=== PATIENT | male | born 1990 | race African-American/Black ===

== ENCOUNTER 2016-12-02 23:07 | Emergency (ER) | payer MEDICAID ==
[~2016-12-02] VITALS: Ht 172.7 cm; Wt 64.9 kg
[2016-12-03] MEDS ORDERED: FOLIC ACID 1 MG, THIAMINE HCL 100 MG, MVI, ADULT NO.1 10 ML in DEXTROSE 5% WATER 1,000 ML IV ONE ×4
[2016-12-03 00:18] LABS: BASOPHILS % 0.4 % (0.0-2.0); HEMATOCRIT. 45.5 % (42.0-52.0); LYMPHOCYTES % 22.9 % (20.0-50.0); MEAN CORPUSCULAR HEMOGLOBIN 34.7 pg (28.0-32.0); MEAN CORPUSCULAR HGB CONC 35.1 g/dL (31.0-37.0); MEAN PLATELET VOLUME 7.3 fl (7.4-10.4); MONOCYTES % 9.4 % (2.0-8.0); NEUTROPHILS % 59.3 % (40.0-76.0); PLATELET 177 x1000/uL (130-400); RED CELL DISTRIBUTION WIDTH 12.8 % (11.6-14.6); WHITE BLOOD COUNT 5.1 x1000/uL (4.5-11.0)
[2016-12-03 00:22] LABS: CHLORIDE 102 mEq/L (98-107); INDEX HEMOLYSI 1 (1-3); INDEX ICTERIC 1 (1-4); INDEX LIPEMIC 1 (1-3)
[2016-12-03 00:31] LABS: ACETAMINOPHEN < 2 ug/mL (10-30); ALANINE AMINOTRANSFERASE 42 IU/L (13-61); ALBUMIN 3.9 g/dL (3.4-5.0); ANION GAP 13; CALCIUM 9.3 mg/dL (8.5-10.1); CARBON DIOXIDE 28 mEq/L (21-32); ETHANOL BLOOD < 10 mg/dL; UREA NITROGEN BLOOD 11 mg/dL (7-21); eGFR > 60 mL/min (>60)
[2016-12-03 00:47] LABS: GLUCOSE URINE NEGATIVE (NEGATIVE); KETONES URINE TRACE (NEGATIVE); LEUKOCYTE ESTERASE URINE 2+ (NEGATIVE); NITRITE URINE NEGATIVE (NEGATIVE); OCCULT BLOOD URINE NEGATIVE (NEGATIVE); PROTEIN URINE TRACE (NEGATIVE); SPECIFIC GRAVITY URINE 1.026 (1.005-1.030)
[2016-12-03 00:48] LABS: CLARITY URINE SL HAZY (CLEAR); COLOR URINE YELLOW (YELLOW)
[2016-12-03 01:06] LABS: *AMPHETAMINES SCREEN URINE PRESUMTIVE POSITIVE (NEGATIVE); *BARBITURATES SCREEN URINE NEGATIVE (NEGATIVE); *BENZODIAZEPINES SCREEN URINE NEGATIVE (NEGATIVE); *COCAINE SCREEN URINE NEGATIVE (NEGATIVE); CANNABINOID URINE SCREEN PRESUMTIVE POSITIVE (NEGATIVE); ECSTASY MDMA SCREEN URINE NEGATIVE (NEGATIVE); METHADONE URINE SCREEN NEGATIVE (NEGATIVE); OPIATES URINE SCREEN NEGATIVE (NEGATIVE); PHENCYCLIDINE URINE SCREEN NEGATIVE (NEGATIVE)
[2016-12-03 01:09] LABS: RBC URINE 0-2 /hpf (0-2); SQUAMOUS EPITHELIAL CELL URINE NONE SEEN /lpf (RARE/1+)
[2016-12-03 01:10] LABS: BACTERIA URINE TRACE
[2016-12-03 01:34] VITALS: BP 129/76
== END 2016-12-03 03:00 | disposition home or self-care (01) ==
LOC: ER 23:19
DX: F10.20 Alcohol dependence, uncomplicated (principal); N39.0 Urinary tract infection, site not specified; F19.10 Other psychoactive substance abuse, uncomplicated; F17.210 Nicotine dependence, cigarettes, uncomplicated; F12.10 Cannabis abuse, uncomplicated; F15.10 Other stimulant abuse, uncomplicated; Y90.9 Presence of alcohol in blood, level not specified; Z79.899 Other long term (current) drug therapy
CPT/HCPCS: 36415; 80053; 80305; 80329; 81001; 85025; 96365; 99284; G0482; J3411; J3490; J7070; 80307

== ENCOUNTER 2016-12-18 12:03 | Emergency (ER) | payer MEDICAID ==
[~2016-12-18] VITALS: Ht 172.7 cm; Wt 61.0 kg
[2016-12-18 12:49] VITALS: BP 114/81
== END 2016-12-18 18:28 | disposition home or self-care (01) ==
LOC: ER 14:48
DX: B34.9 Viral infection, unspecified (principal); F12.10 Cannabis abuse, uncomplicated
CPT/HCPCS: 71010; 99283

== ENCOUNTER 2017-05-13 22:17 | Emergency (ER) | payer MEDICAID ==
[~2017-05-13] VITALS: Ht 170.2 cm; Wt 63.0 kg
[2017-05-13] MEDS ORDERED: SODIUM CHLORIDE 0.9% 1,000 ML IV ONE (23:27)
[2017-05-13] MEDS ORDERED: KETOROLAC 30MG/ML VIAL IV STA (23:27)
[2017-05-13] MEDS ORDERED: FAMOTIDINE 20MG/2ML VIAL IV STA (23:27)
[2017-05-13] MEDS ORDERED: ONDANSETRON HCL 4MG/2ML VIAL IV STA (23:27)
[2017-05-13 23:53] VITALS: BP 120/85
[2017-05-13 23:59] LABS: HEMATOCRIT. 45.4 % (42.0-52.0); HEMOGLOBIN. 15.8 g/dL (14.0-18.0); MEAN CORPUSCULAR HEMOGLOBIN 33.5 pg (28.0-32.0); MEAN CORPUSCULAR VOLUME 96.2 fL (80.0-94.0); MEAN PLATELET VOLUME 7.3 fl (7.4-10.4); PLATELET 208 x1000/uL (130-400); RED BLOOD CELL COUNT 4.72 mill/uL (4.7-6.1); RED CELL DISTRIBUTION WIDTH 12.5 % (11.6-14.6)
[2017-05-14 00:02] LABS: INR 1.2; PROTHROMBIN TIME 12.7 sec (9.4-11.6)
[2017-05-14 00:05] LABS: CHLORIDE 107 mEq/L (98-107)
[2017-05-14 00:13] LABS: CARBON DIOXIDE 23 mEq/L (21-32); ETHANOL BLOOD 21 mg/dL
[2017-05-14] MEDS ORDERED: FOLIC ACID 1 MG, THIAMINE HCL 100 MG, MVI, ADULT NO.1 10 ML in DEXTROSE 5% WATER 1,000 ML IV ONE ×4 (00:30)
[2017-05-14 00:52] LABS: PLATELET ESTIMATE NORMAL
[2017-05-14 02:23] LABS: CLARITY URINE CLEAR (CLEAR); COLOR URINE DARK YELLOW (YELLOW); GLUCOSE URINE NEGATIVE (NEGATIVE); KETONES URINE 3+ (NEGATIVE); LEUKOCYTE ESTERASE URINE TRACE (NEGATIVE); NITRITE URINE NEGATIVE (NEGATIVE); OCCULT BLOOD URINE NEGATIVE (NEGATIVE); PH URINE 5.5 (4.5-8.0); PROTEIN URINE 1+ (NEGATIVE); SPECIFIC GRAVITY URINE 1.029 (1.005-1.030)
[2017-05-14 02:41] LABS: *AMPHETAMINES SCREEN URINE PRESUMTIVE POSITIVE (NEGATIVE); *BARBITURATES SCREEN URINE NEGATIVE (NEGATIVE); *BENZODIAZEPINES SCREEN URINE NEGATIVE (NEGATIVE); *COCAINE SCREEN URINE NEGATIVE (NEGATIVE); CANNABINOID URINE SCREEN PRESUMTIVE POSITIVE (NEGATIVE); METHADONE URINE SCREEN NEGATIVE (NEGATIVE); OPIATES URINE SCREEN NEGATIVE (NEGATIVE); PHENCYCLIDINE URINE SCREEN NEGATIVE (NEGATIVE)
[2017-05-14 07:49] LABS: HEPATITIS A AB IGM NEGATIVE (NEGATIVE); HEPATITIS B CORE AB IGM NEGATIVE; HEPATITIS B SURFACE ANTIGEN NEGATIVE
== END 2017-05-14 03:37 | disposition home or self-care (01) ==
LOC: ER 22:46
DX: R10.13 Epigastric pain (principal); R11.2 Nausea with vomiting, unspecified; F17.200 Nicotine dependence, unspecified, uncomplicated; F12.10 Cannabis abuse, uncomplicated; F10.20 Alcohol dependence, uncomplicated; Y90.8 Blood alcohol level of 240 mg/100 ml or more
CPT/HCPCS: 36415; 76705; 80053; 80305; 81001; 82962; 83690; 85025; 85610; 96361; 96365; 96366; 96375; 99285; G0482; J1885; J2405; J3411; J3490; J7030; J7070; 86705; 86709; 86803; 87340

== ENCOUNTER 2017-05-24 00:03 | Emergency (ER) | payer MEDICAID ==
[~2017-05-24] VITALS: Ht 170.2 cm; Wt 54.0 kg
[2017-05-24] MEDS ORDERED: ONDANSETRON HCL 4MG/2ML VIAL IV STA (04:46)
[2017-05-24 05:07] LABS: HEMATOCRIT. 44.4 % (42.0-52.0); HEMOGLOBIN. 15.5 g/dL (14.0-18.0); MEAN CORPUSCULAR HEMOGLOBIN 33.4 pg (28.0-32.0); MEAN CORPUSCULAR VOLUME 95.8 fL (80.0-94.0); MEAN PLATELET VOLUME 7.3 fl (7.4-10.4); PLATELET 213 x1000/uL (130-400); RED BLOOD CELL COUNT 4.63 mill/uL (4.7-6.1); RED CELL DISTRIBUTION WIDTH 12.3 % (11.6-14.6)
[2017-05-24] MEDS ORDERED: MORPHINE SULFATE 4 MG/ML CPJ (NOT FOR IM USE) IV STA (05:12)
[2017-05-24] MEDS ORDERED: SODIUM CHLORIDE 0.9% 1,000 ML IV ONE (05:12)
[2017-05-24 05:25] LABS: CLARITY URINE CLEAR (CLEAR); COLOR URINE DARK YELLOW (YELLOW); GLUCOSE URINE NEGATIVE (NEGATIVE); KETONES URINE TRACE (NEGATIVE); LEUKOCYTE ESTERASE URINE TRACE (NEGATIVE); NITRITE URINE NEGATIVE (NEGATIVE); OCCULT BLOOD URINE NEGATIVE (NEGATIVE); PROTEIN URINE 1+ (NEGATIVE); SPECIFIC GRAVITY URINE 1.027 (1.005-1.030)
[2017-05-24 05:29] LABS: CARBON DIOXIDE 22 mEq/L (21-32); CHLORIDE 106 mEq/L (98-107)
[2017-05-24 06:37] LABS: PLATELET ESTIMATE NORMAL
[2017-05-24 07:31] VITALS: BP 102/64
== END 2017-05-24 08:01 | disposition home or self-care (01) ==
LOC: ER 00:03
DX: N39.0 Urinary tract infection, site not specified (principal)
CPT/HCPCS: 36415; 74176; 80053; 81001; 83690; 85025; 96361; 96374; 96375; 99285; J2270; J2405; J7030; Z7610

== ENCOUNTER 2017-06-21 04:49 | Emergency (ER) | payer MEDICAID ==
[~2017-06-21] VITALS: Ht 172.7 cm; Wt 65.0 kg
[2017-06-21] MEDS ORDERED: SODIUM CHLORIDE 0.9% 1,000 ML IV ONE (09:00)
[2017-06-21] MEDS ORDERED: FAMOTIDINE 20MG/2ML VIAL IV ONE (09:00)
[2017-06-21] MEDS ORDERED: ONDANSETRON HCL 4MG/2ML VIAL IM ONE (09:00)
[2017-06-21] MEDS ORDERED: MORPHINE SULFATE 1MG/ML 1ML INJ SYR(NEO) IV ONE (09:00)
[2017-06-21] MEDS ORDERED: MORPHINE SULFATE 2 MG/ML CPJ (NOT FOR IM USE) IV ONE (09:30)
[2017-06-21 09:41] LABS: HEMATOCRIT. 47.3 % (42.0-52.0); HEMOGLOBIN. 16.3 g/dL (14.0-18.0); MEAN CORPUSCULAR HEMOGLOBIN 33.1 pg (28.0-32.0); MEAN CORPUSCULAR VOLUME 96.2 fL (80.0-94.0); MEAN PLATELET VOLUME 7.4 fl (7.4-10.4); PLATELET 229 x1000/uL (130-400); RED BLOOD CELL COUNT 4.92 mill/uL (4.7-6.1); RED CELL DISTRIBUTION WIDTH 12.3 % (11.6-14.6)
[2017-06-21 09:41] LABS: CLARITY URINE CLOUDY (CLEAR); COLOR URINE DARK YELLOW (YELLOW); GLUCOSE URINE NEGATIVE (NEGATIVE); KETONES URINE 1+ (NEGATIVE); LEUKOCYTE ESTERASE URINE 1+ (NEGATIVE); NITRITE URINE NEGATIVE (NEGATIVE); OCCULT BLOOD URINE NEGATIVE (NEGATIVE); PH URINE 5.5 (4.5-8.0); PROTEIN URINE 1+ (NEGATIVE); SPECIFIC GRAVITY URINE 1.028 (1.005-1.030)
[2017-06-21 09:48] LABS: CHLORIDE 106 mEq/L (98-107)
[2017-06-21 09:55] LABS: CARBON DIOXIDE 27 mEq/L (21-32)
[2017-06-21 10:30] LABS: PLATELET ESTIMATE NORMAL
[2017-06-21] MEDS ORDERED: MORPHINE SULFATE 4 MG/ML CPJ (NOT FOR IM USE) IV NR (10:30)
[2017-06-21 10:39] VITALS: BP 104/69
[2017-06-21] MEDS ORDERED: CEFTRIAXONE SODIUM 1 G/VIAL IM ONE (11:00)
== END 2017-06-21 12:59 | disposition home or self-care (01) ==
LOC: ER 04:49
DX: K29.70 Gastritis, unspecified, without bleeding (principal); N39.0 Urinary tract infection, site not specified
CPT/HCPCS: 36415; 76700; 80053; 81001; 83690; 85025; 96361; 96372; 96374; 96375; 99285; J0696; J2270; J2405; J3490; J7030; Z7610

== ENCOUNTER 2017-06-30 12:26 | Emergency (ER) | payer MEDICAID ==
[~2017-06-30] VITALS: Ht 172.7 cm; Wt 66.0 kg
[2017-06-30 12:30] VITALS: BP 106/64
== END 2017-06-30 17:05 | disposition left against medical advice (07) ==
LOC: ER 14:50
DX: Z53.21 Procedure and treatment not carried out due to patient leaving prior to being seen by health care provider (principal)

== ENCOUNTER 2019-01-17 02:12 | Emergency (ER) | payer MEDICAID ==
[~2019-01-17] VITALS: Ht 170.2 cm; Wt 64.0 kg
[2019-01-17 02:19] VITALS: BP 133/99
== END 2019-01-17 06:26 | disposition left against medical advice (07) ==
LOC: ER 02:12
DX: R10.9 Unspecified abdominal pain (principal); Z53.21 Procedure and treatment not carried out due to patient leaving prior to being seen by health care provider

== ENCOUNTER 2019-06-21 07:21 | Emergency (ER) | payer MEDICAID ==
[~2019-06-21] VITALS: Ht 170.2 cm; Wt 61.0 kg
[2019-06-21 07:59] VITALS: BP 111/74
[2019-06-21] MEDS ORDERED: AZITHROMYCIN 500 MG TABLET PO ONE (09:00)
[2019-06-21] MEDS ORDERED: CEFTRIAXONE SODIUM 250 MG/VIAL IM ONE (09:00)
[2019-06-21 12:56] LABS: CLARITY URINE CLEAR (CLEAR); COLOR URINE YELLOW (YELLOW); KETONES URINE NEGATIVE (NEGATIVE); LEUKOCYTE ESTERASE URINE 3+ (NEGATIVE); NITRITE URINE NEGATIVE (NEGATIVE); OCCULT BLOOD URINE NEGATIVE (NEGATIVE); PH URINE 6.5 (4.5-8.0); PROTEIN URINE NEGATIVE (NEGATIVE)
== END 2019-06-21 10:53 | disposition home or self-care (01) ==
LOC: ER 07:27
DX: N34.2 Other urethritis (principal)
CPT/HCPCS: 81003; 87086; 87491; 87591; 96372; 99283; J0696

== ENCOUNTER 2021-07-30 22:07 | Emergency (ER) | payer MEDICAID ==
[~2021-07-30] VITALS: Ht 172.7 cm; Wt 65.8 kg
[2021-07-30 22:20] VITALS: BP 118/87
[2021-07-30] MEDS ORDERED: PREDNISONE 20MG TABLET PO ONE (23:15)
[2021-07-30] MEDS ORDERED: DIPHENHYDRAMINE 25MG CAPSULE PO ONE (23:15)
[2021-07-30] MEDS ORDERED: FAMOTIDINE 20MG TABLET PO ONE (23:15)
[2021-07-31] MEDS ORDERED: PERM60CR4 TP (00:30)
[2021-07-31] MEDS ORDERED: PRED10TA MT (00:30)
== END 2021-07-31 00:53 | disposition home or self-care (01) ==
LOC: ER 22:07
DX: B86 Scabies (principal); K64.4 Residual hemorrhoidal skin tags
CPT/HCPCS: 99284; J7512; Q0163

== ENCOUNTER 2021-08-28 08:24 | Emergency (ER) | payer MEDICAID ==
[~2021-08-28] VITALS: Ht 172.7 cm; Wt 68.0 kg
[~2021-08-28 08:24] MED LIST: PERM60CR4 TP; PRED10TA MT
[2021-08-28 08:47] VITALS: BP 119/64
== END 2021-08-28 12:24 | disposition left against medical advice (07) ==
LOC: ER 08:24
DX: Z53.21 Procedure and treatment not carried out due to patient leaving prior to being seen by health care provider (principal)

== ENCOUNTER 2025-02-08 11:10 | Emergency (ER) | payer MEDICAID ==
[~2025-02-08] VITALS: Ht 172.7 cm; Wt 65.0 kg
[2025-02-08 11:19] VITALS: O2SAT 100
[2025-02-08] MEDS: KETOROLAC 30MG/ML VIAL IV STA (12:32)
[2025-02-08 13:20] LABS: BASOPHILS % 0.4 % (0.0-2.0); EOSINOPHILS % 2.7 % (0.0-5.0); HEMATOCRIT. 32.4 % (42.0-52.0); HEMOGLOBIN. 10.6 g/dL (14.0-18.0); LYMPHOCYTES % 30.1 % (20.0-50.0); MEAN CORPUSCULAR HEMOGLOBIN 29.7 pg (28.0-32.0); MEAN CORPUSCULAR HGB CONC 32.7 g/dL (31.0-37.0); MEAN CORPUSCULAR VOLUME 90.9 fL (80.0-94.0); MEAN PLATELET VOLUME 7.3 fl (7.4-10.4); MONOCYTES % 5.4 % (2.0-8.0); NEUTROPHILS % 61.4 % (40.0-76.0); PLATELET 330 x1000/uL (130-400); RED BLOOD CELL COUNT 3.56 mill/uL (4.7-6.1); RED CELL DISTRIBUTION WIDTH 14.5 % (11.6-14.6); WHITE BLOOD COUNT 10.9 x1000/uL (4.5-11.0)
[2025-02-08 14:07] LABS: CHLORIDE 101 mEq/L (98-107); POTASSIUM 4.1 mEq/L (3.5-5.1); SODIUM 135 mEq/L (136-145)
[2025-02-08 14:08] LABS: CALCIUM 8.8 mg/dL (8.7-10.4); CARBON DIOXIDE 26 mEq/L (21-32)
[2025-02-08 14:13] LABS: GLUCOSE 90 mg/dL (70-105); UREA NITROGEN BLOOD 16 mg/dL (9-23)
[2025-02-08] MEDS: CEFTRIAXONE 1GM/50ML 50 ML IV ONE (16:53)
[2025-02-08 19:00] VITALS: BP 117/82; PULSE 89; RESP 16; TEMP 36.9; O2SAT 100
[2025-02-10 09:07] LABS: % CD 3 POS. LYMPHOCYTES 78.7 % (57.5-86.2); % CD 4 POS. LYMPHOCYTES 11.8 % (30.8-58.5); % CD 8 POS. LYMPH 66.7 % (12.0-35.5); ABSOLUTE CD 3 3227 /uL (622-2402); ABSOLUTE CD 4 HELPER 484 /uL (359-1519); ABSOLUTE CD 8 SUPPRESSOR 2735 /uL (109-897); ABSOLUTE EOSINOPHILS 0.3 x10E3/uL (0.0-0.4); ABSOLUTE LYMPHOCYTES 4.1 x10E3/uL (0.7-3.1); ABSOLUTE MONOCYTES 0.6 x10E3/uL (0.1-0.9); ABSOLUTE NEUTROPHILS 6.2 x10E3/uL (1.4-7.0); BASOPHILS 0 % (Not Estab.); CD4/CD8 RATIO 0.18 (0.92-3.72); EOSINOPHILS 2 % (Not Estab.); HEMATOCRIT 30.2 % (37.5-51.0); HEMOGLOBIN 9.5 g/dL (13.0-17.7); IMMATURE GRANULOCYTES 1 % (Not Estab.); IMMATURE GRANULOCYTES ABSOLUTE 0.1 x10E3/uL (0.0-0.1); LYMPHOCYTES 36 % (Not Estab.); MEAN CORPUSCULAR HEMOGLOBIN 29.1 pg (26.6-33.0); MEAN CORPUSCULAR HGB CONC. 31.5 g/dL (31.5-35.7); MEAN CORPUSCULAR VOLUME 92 fL (79-97); MONOCYTES 6 % (Not Estab.); NEUTROPHILS 55 % (Not Estab.); PLATELETS 255 x10E3/uL (150-450); RBC 3.27 x10E6/uL (4.14-5.80); RED CELL DISTRIBUTION WIDTH 11.9 % (11.6-15.4); WBC 11.3 x10E3/uL (3.4-10.8)
== END 2025-02-08 19:55 | disposition short-term general hospital (02) ==
LOC: ER 11:10 → EDBEDREQ 18:08 → EDBEDREQTM 18:08 → ER 19:55 → CMPBEDREQ 02-09 08:03
DX: S61.402A Unspecified open wound of left hand, initial encounter (principal); S61.401A Unspecified open wound of right hand, initial encounter; R75 Inconclusive laboratory evidence of human immunodeficiency virus [HIV]; Z55.6 Problems related to health literacy; Z59.00 Homelessness unspecified; Z79.899 Other long term (current) drug therapy; X58.XXXA Exposure to other specified factors, initial encounter; Y93.9 Activity, unspecified; Y92.89 Other specified places as the place of occurrence of the external cause; Y99.8 Other external cause status; D64.9 Anemia, unspecified
CPT/HCPCS: 86359; 86360; 80048; 83605; 85025; 87040; 36415; 87389; 96365; 96375; 99285; 87536; J0696; J1885; Z7610 ×3; A4606

== ENCOUNTER 2025-04-04 19:42 | Emergency (ER) | payer MEDICAID ==
[~2025-04-04] VITALS: Ht 170.2 cm; Wt 64.0 kg
[2025-04-04 20:54] VITALS: O2SAT 100
[2025-04-04 21:43] LABS: BASOPHILS % 0.2 % (0.0-2.0); EOSINOPHILS % 2.1 % (0.0-5.0); HEMATOCRIT. 34.2 % (42.0-52.0); HEMOGLOBIN. 11.3 g/dL (14.0-18.0); LYMPHOCYTES % 31.6 % (20.0-50.0); MEAN PLATELET VOLUME 6.9 fl (7.4-10.4); MONOCYTES % 5.2 % (2.0-8.0); NEUTROPHILS % 60.9 % (40.0-76.0); PLATELET 313 x1000/uL (130-400); RED BLOOD CELL COUNT 3.75 mill/uL (4.7-6.1); RED CELL DISTRIBUTION WIDTH 14.4 % (11.6-14.6)
[2025-04-04 21:54] LABS: CREATININE 1.1 mg/dL (0.6-1.3); ETHANOL BLOOD < 10 mg/dL (<10); UREA NITROGEN BLOOD 23 mg/dL (9-23)
[2025-04-04 22:34] VITALS: BP 129/80; PULSE 106; RESP 16; TEMP 36.7; O2SAT 99
== END 2025-04-04 23:25 | disposition left against medical advice (07) ==
LOC: ER 19:42
DX: R44.3 Hallucinations, unspecified (principal); F15.90 Other stimulant use, unspecified, uncomplicated; F10.90 Alcohol use, unspecified, uncomplicated; Z79.899 Other long term (current) drug therapy; Y90.9 Presence of alcohol in blood, level not specified
CPT/HCPCS: 36415; 80048; 80307; 80320; 80329; 85025; 99283; G0480

== ENCOUNTER 2025-06-19 11:21 | Emergency (ER) | payer MEDICAID ==
[~2025-06-19] VITALS: Ht 170.2 cm; Wt 68.0 kg
[~2025-06-19 11:21] MED LIST changes: +PERM60CR20 TP; -PERM60CR4 TP
[2025-06-19 11:52] VITALS: TEMP 36.9; O2SAT 97
[2025-06-19] MEDS: ACETAMINOPHEN 325MG TABLET PO ONE (15:15)
[2025-06-19 16:42] LABS: BASOPHILS % 0.2 % (0.0-2.0); EOSINOPHILS % 0.3 % (0.0-5.0); HEMATOCRIT. 30.4 % (42.0-52.0); HEMOGLOBIN. 10.1 g/dL (14.0-18.0); LYMPHOCYTES % 33.8 % (20.0-50.0); MEAN PLATELET VOLUME 6.5 fl (7.4-10.4); MONOCYTES % 9.4 % (2.0-8.0); NEUTROPHILS % 56.3 % (40.0-76.0); PLATELET 297 x1000/uL (130-400); RED BLOOD CELL COUNT 3.35 mill/uL (4.7-6.1); RED CELL DISTRIBUTION WIDTH 14.0 % (11.6-14.6)
[2025-06-19 17:00] LABS: CREATININE 1.1 mg/dL (0.6-1.3); UREA NITROGEN BLOOD 11 mg/dL (9-23)
[2025-06-19] MEDS: LIDOCAINE HCL 1% 20ML VIAL INFIL ONE (17:15)
[2025-06-19] MEDS: CEFTRIAXONE SODIUM 1G VIAL IM ONE (17:15)
[2025-06-19] MEDS ORDERED: AMOX1TAB16 MT (17:50)
[2025-06-19] MEDS ORDERED: NAPR-681 MT (17:50)
[2025-06-19] MEDS ORDERED: SULF1TAB48 MT (17:50)
[2025-06-19 18:04] VITALS: BP 111/72; PULSE 67; RESP 16; O2SAT 100
== END 2025-06-19 18:06 | disposition home or self-care (01) ==
LOC: ER 11:21
DX: L01.00 Impetigo, unspecified (principal); H66.92 Otitis media, unspecified, left ear; F10.90 Alcohol use, unspecified, uncomplicated; Z87.891 Personal history of nicotine dependence; Y90.9 Presence of alcohol in blood, level not specified
CPT/HCPCS: 99283; 80048; 85025; 36415; 96372; J0696; J2003